=== PATIENT | female | born 1945 | race Caucasian/White ===

== ENCOUNTER 2017-08-20 20:16 | Emergency (ER) | payer MEDICARE, OTHER ==
[2017-08-20 20:40] VITALS: BP 157/77
[2017-08-20] MEDS ORDERED: Sodium Chloride 0.9% 10 ML Syringe FLUSH PRN (20:50)
[2017-08-20] MEDS ORDERED: Aspirin 81 MG Tab.Chew PO ONE (21:44)
[2017-08-20] MEDS ORDERED: Nitroglycerin 2% Oint 1 GM UD Packet TOP ONE (21:44)
[2017-08-20] MEDS ORDERED: Potassium Chloride 10 MEQ in Premix Bag 1 BAG IV ONE (22:13)
[2017-08-20] MEDS ORDERED: Sodium Chloride 0.9% 1,000 ML IV SCH (22:15)
--- NOTE | 2017-08-20 22:20 | EDM.PDOC ---
ED HPI GENERAL MEDICAL PROBLEM - General Chief Complaint: Upper Extremity Injury/Pain Stated Complaint: PAIN IN SHOULDER AND BLOOD PRESSURE IS UP Time Seen by Provider: 08/20/17 20:38 Source of Information: Reports: Patient, RN Notes Reviewed - History of Present Illness INITIAL COMMENTS - FREE TEXT/NARRATIVE: 72-year-old lady comes in with left back discomfort. She also has had some palpitations and mild shortness of breath. She had an episode of this a couple of days ago and then felt this again today. she did do some light duty lifting this afternoon prior to onset of discomfort. Her was bringing wheelbarrels of wood to the deck of their house and then she was stacking it on the deck for their woodstove. She does not feel she injured her back. She has had no chest pain or tightness. No nausea, vomiting or diaphoresis. No abd pain. She does have hx of Htn and their also is family hx of CAD. Treatments TICK SEWER: Reports: Other (see below) Other Treatments TICK SEWER: had daily asa today this morning Left Shoulder Pain Score (Numeric/FACES): 5 - Related Data Allergies Allergy/AdvReac Type Severity Reaction Status Date / Time amoxicillin Allergy Hives Verified 07/11/16 02:48 metronidazole Allergy Hives Verified 07/11/16 02:48 Home Meds: Home Meds Aspirin [Ecotrin] 81 mg PO DAILY 07/11/16 [History] Calcium Carbonate [Calcium] 600 mg PO DAILY 07/11/16 [History] Diltiazem HCl [Diltiazem 24Hr Cd] 300 mg PO DAILY 07/11/16 [History] Metoprolol Tartrate 12.5 mg PO BID 07/11/16 [History] Potassium 99 mg PO DAILY 07/11/16 [History] Ubidecarenone [Coq10] 124 mg PO DAILY 07/11/16 [History] atorvaSTATin [Lipitor] 10 mg PO BEDTIME 07/11/16 [History] Hydrochlorathiazide 12.5 mg PO DAILY 08/20/17 [History] Past Medical History HEENT History: Reports: Impaired Vision Other HEENT History: Wears glasses Cardiovascular History: Reports: Arrhythmia, High Cholesterol, Hypertension, Other (See Below) Other Cardiovascular History: SVT 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 Denies: Chest Pain GI/Abdominal: Denies: Abdominal Pain, Nausea, Vomiting Musculoskeletal: Reports: Back Pain. Denies: Shoulder Pain, Arm Pain Skin: Reports: No Symptoms Neurological: Reports: No Symptoms ED EXAM, GENERAL - Physical Exam Exam: See Below General Appearance: Alert, No Apparent Distress Throat/Mouth: Normal Inspection, Normal Oropharynx Head: No: Facial Swelling Neck: Normal Inspection, Supple, Other Respiratory/Chest: No Respiratory Distress, Lungs Clear, Normal Breath Sounds, Chest Non-Tender. No: Rales, Wheezing Cardiovascular: Regular Rate, Rhythm GI/Abdominal: Soft, Non-Tender. No: Guarding Back Exam: Normal Inspection. No: Paraspinal Tenderness, Vertebral Tenderness Extremities: Normal Inspection. No: Pedal Edema, Leg Pain, Increased Warmth, Redness Neurological: Alert, Oriented, No Motor/Sensory Deficits Skin Exam: Warm, Dry, Normal Color EKG INTERPRETATION EKG Date: 08/20/17 Rhythm: NSR [place]: Normal P-Wave: Present QRS: Other (There are Q waves V2 and V3) ST-T: Other (T-wave inversion aVL) Course - Vital Signs Last Recorded V/S: Last Vital Signs Temp 98.6 F 08/20/17 20:39 Pulse 57 L 08/20/17 20:39 Resp 20 08/20/17 20:39 BP 157/77 H 08/20/17 20:39 Pulse Ox 98 08/20/17 20:39 - Orders/Labs/Meds Orders: Active Orders 24 hr Category Date Time Status EKG 12 Lead [EKG Documentation Completion] [RC] STAT Care 08/20/17 20:50 Active Peripheral IV Care [RC] . DIRECTED Care 08/20/17 20:50 Active Chest 1V Frontal [CR] Stat Exams 08/20/17 20:50 Taken Sodium Chloride 0.9% [Normal Saline] 1,000 ml Med 08/20/17 22:15 Active IV ASDIRECTED Sodium Chloride 0.9% [Saline Flush] Med 08/20/17 20:50 Active 10 ml FLUSH ASDIRECTED PRN Peripheral IV Insertion Adult [OM.PC] Stat Oth 08/20/17 20:50 Ordered Medication Orders Sodium Chloride (Normal Saline) 1,000 mls @ 150 mls/hr IV ASDIRECTED ALECIA Last Admin: 08/20/17 22:25 Dose: 150 mls/hr Sodium Chloride (Saline Flush) 10 ml FLUSH ASDIRECTED PRN PRN Reason: Keep Vein Open Last Admin: 08/20/17 21:59 Dose: 10 ml Labs: Laboratory Tests 08/20/17 08/20/17 08/21/17 Range/Units 21:05 21:05 00:00 WBC 7.70 (3.98-10.04) K/mm3 RBC 4.68 (3.98-5.22) M/mm3 Hgb 13.9 (11.2-15.7) gm/L Hct 41.0 (34.1-44.9) % MCV 87.6 (79.4-94.8) fl MCH 29.7 (25.6-32.2) pg MCHC 33.9 (32.2-35.5) g/dl RDW Std Deviation 40.8 (36.4-46.3) fL Plt Count 232 (182-369) K/mm3 MPV 10.6 (9.4-12.3) fl Neut % (Auto) 65.7 (34.0-71.1) % Lymph % (Auto) 22.1 (19.3-51.7) % [place] % (Auto) 10.4 (4.7-12.5) % Eos % (Auto) 1.3 (0.7-5.8) Baso % (Auto) 0.4 (0.1-1.2) % Neut # (Auto) 5.06 (1.56-6.13) K/mm3 Lymph # (Auto) 1.70 (1.18-3.74) K/mm3 [place] # (Auto) 0.80 H (0.24-0.36) K/mm3 Eos # (Auto) 0.10 (0.04-0.36) K/mm3 Baso # (Auto) 0.03 (0.01-0.08) K/mm3 Sodium 142 (136-145) mEq/L Potassium 2.9 L (3.5-5.1) mEq/L Chloride 103 (98-107) mEq/L Carbon Dioxide 29 (21-32) mEq/L Anion Gap 12.9 (5-15) BUN 22 H (7-18) mg/dL Creatinine 1.0 (0.55-1.02) mg/dL Est Cr Clr Drug Dosing 39.04 mL/min Estimated GFR (MDRD) 54 (>60) mL/min BUN/Creatinine Ratio 22.0 H (14-18) Glucose 99 (83-115) mg/dL Calcium 9.7 (8.5-10.1) mg/dL Total Bilirubin 0.4 (0.2-1.0) mg/dL AST 19 (15-37) U/L ALT 23 (14-59) U/L Alkaline Phosphatase 54 (46-116) U/L Troponin I < 0.017 < 0.017 (0.00-0.056) ng/mL Total Protein 7.4 (6.4-8.2) g/dl Albumin 4.0 (3.4-5.0) g/dl Globulin 3.4 gm/dL Albumin/Globulin Ratio 1.2 (1-2) Meds: Medications Generic Name Dose Route Start Last Admin Trade Name John PRN Reason Stop Dose Admin Sodium Chloride 1,000 mls @ 150 mls/hr 08/20/17 22:15 08/20/17 22:25 Normal Saline IV 150 mls/hr ASDIRECTED ALECIA Administration Sodium Chloride 10 ml 08/20/17 20:50 08/20/17 21:59 Saline Flush FLUSH 10 ml ASDIRECTED PRN Administration Keep Vein Open Discontinued Medications Generic Name Dose Route Start Last Admin Trade Name Freq PRN Reason Stop Dose Admin Aspirin 324 mg 08/20/17 21:44 08/20/17 21:57 Aspirin PO 08/20/17 21:45 324 mg ONETIME ONE Administration Potassium Chloride 10 meq/ 100 mls @ 50 mls/hr 08/20/17 22:13 08/20/17 22:26 Premix IV 08/21/17 00:12 50 mls/hr ASDIRECTED ONE Administration Nitroglycerin 1 gm 08/20/17 21:44 08/20/17 21:58 Nitro-Bid 2% TOP 08/20/17 21:45 1 gm ONETIME ONE Administration - Re-Assessments/Exams Free Text/Narrative Re-Assessment/Exam: 08/20/17 22:23. Chest x-ray looks good, palate and has come back negative potassium is low at 2.9, other labs look good. We will give her IV potassium and then check a 3 hour troponin. Have given 324 mg aspirin and also nitro paste. 08/21/17 00:42. Repeat troponin has come back negative. She continues in sinus rhythm, no ectopy. She feels well at this time, her previous discomfort is gone. Discharge instructions as documented. Departure - Departure Time of Disposition: 00:42 Disposition: Home, Self-Care 01 Condition: Fair Clinical Impression: Atypical chest pain, Hypokalemia - Discharge Information Referrals: Darren James MD [Primary Care Provider] - Forms: ED Department Discharge Additional Instructions: Increase potassium to twice daily for the next week, try eat plenty of bananas, other fruit and vegetables, potatoes also are a good source of potassium., See Dr. Valle in about one week for recheck, return to ED if symptoms worsening in any way. - My Orders Last 24 Hours: My Active Orders 08/20/17 20:50 EKG 12 Lead [EKG Documentation Completion] [RC] STAT Peripheral IV Care [RC] . DIRECTED Chest 1V Frontal [CR] Stat Sodium Chloride 0.9% [Saline Flush] 10 ml FLUSH ASDIRECTED PRN Peripheral IV Insertion Adult [OM.PC] Stat 08/20/17 22:15 Sodium Chloride 0.9% [Normal Saline] 1,000 ml IV ASDIRECTED - Assessment/Plan Last 24 Hours: My Active Orders 08/20/17 20:50 EKG 12 Lead [EKG Documentation Completion] [RC] STAT Peripheral IV Care [RC] . DIRECTED Chest 1V Frontal [CR] Stat Sodium Chloride 0.9% [Saline Flush] 10 ml FLUSH ASDIRECTED PRN Peripheral IV Insertion Adult [OM.PC] Stat 08/20/17 22:15 Sodium Chloride 0.9% [Normal Saline] 1,000 ml IV ASDIRECTED
--- NOTE | 2017-08-21 11:24 | CR ---
Chest: Portable view of the chest was obtained. Comparison: Prior chest x-ray of 09/20/13. Heart size and mediastinum are normal. Slight atelectasis is noted within the left lung base. Lungs otherwise are clear. Mild scoliosis is noted within the spine. Surgical clips are seen from prior cholecystectomy. Impression: 1. Incidental findings. Nothing acute is appreciated on portable chest x-ray. Diagnostic code #2
== END 2017-08-21 00:51 | disposition home or self-care (01) ==
LOC: JD.ED 20:16
DX: R07.89 Other chest pain (principal); E87.6 Hypokalemia; I10 Essential (primary) hypertension; E78.00 Pure hypercholesterolemia, unspecified; Z79.899 Other long term (current) drug therapy; Z88.1 Allergy status to other antibiotic agents; Z79.82 Long term (current) use of aspirin
CPT/HCPCS: 36415; 71010; 80053; 84484; 85025; 93005; 96365; 96366; 99284; A9270; J3480; J7040; J7050; 93010; 99283

== ENCOUNTER 2018-10-15 14:10 | Emergency (ER) | payer MEDICARE, OTHER ==
[2018-10-15 14:24] VITALS: BP 155/71
[2018-10-15] MEDS ORDERED: Sodium Chloride 0.9% 10 ML Syringe FLUSH PRN (14:26)
[2018-10-15] MEDS ORDERED: Diltiazem 50 MG/10 ML SDV IVPUSH ONE (14:27)
[2018-10-15] MEDS ORDERED: Sodium Chloride 0.9% 1,000 ML IV SCH (14:30)
[2018-10-15] MEDS ORDERED: Diltiazem 125 MG in Sodium Chloride 0.9% 100 ML IV SCH (14:30)
--- NOTE | 2018-10-15 15:39 | CR ---
Chest: Portable view of the chest was obtained. Comparison: Prior chest x-ray of 08/20/17. Slight scar is seen within the left base. Heart size at the upper limits of normal. Tortuous thoracic aorta is seen. No acute parenchymal change is seen. Mild scoliosis and scattered degenerative change are seen within the spine. Impression: 1. Incidental findings. Nothing acute is seen. Diagnostic code #2
--- NOTE | 2018-10-15 16:33 | EDM.PDOC ---
ED HPI GENERAL MEDICAL PROBLEM - General Chief Complaint: Chest Pain Stated Complaint: CHEST PAIN Time Seen by Provider: 10/15/18 14:21 Source of Information: Reports: Patient History Limitations: Reports: No Limitations - History of Present Illness INITIAL COMMENTS - FREE TEXT/NARRATIVE: The patient presents with palpitations. She has a questionable history of A- fib. She says she is seeing cardiology and they are trying to figure out if this is SVT or A-fib. She had a stress test and that was fine. She had a recent holter but no results from that yet. She said this started after lunch. She has some chest tightness with it. She has no shortness of breath. She has no fever, chills, cough, congestion and runny nose. She has no swelling in her legs or pain in her legs. Onset: Sudden Duration: Hour(s): Location: Reports: Chest (tightness) Quality: Reports: Other (Tightness) Severity: Mild Improves with: Reports: None Worsens with: Reports: None Associated Symptoms: Reports: Chest Pain. Denies: Cough, Fever/Chills, Headaches, Nausea/Vomiting, Shortness of Breath Chest Pain Score (Numeric/FACES): 2 - Related Data Allergies Allergy/AdvReac Type Severity Reaction Status Date / Time amoxicillin Allergy Hives Verified 10/15/18 14:55 metronidazole Allergy Hives Verified 10/15/18 14:55 Home Meds: Home Meds Aspirin [Ecotrin] 81 mg PO DAILY 07/11/16 [History] Metoprolol Tartrate 12.5 mg PO BID 07/11/16 [History] dilTIAZem HCl [Diltiazem 24Hr Cd] 240 mg PO DAILY 07/11/16 [History] Hydrochlorathiazide 12.5 mg PO DAILY 08/20/17 [History] Past Medical History HEENT History: Reports: Impaired Vision Other HEENT History: Wears glasses Cardiovascular History: Reports: Arrhythmia, High Cholesterol, Hypertension, Other (See Below) Other Cardiovascular History: SVT 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 (See Below) Other SENIOR CONSULTING MANAGER History: Ovarian cyst - Past Surgical History GI Surgical History: Reports: Appendectomy, Cholecystectomy Female Surgical History: Reports: Hysterectomy, Tubal Ligation Social & Family History - Family History Cardiac: Reports: [place] Neurological: Reports: CVA Oncologic: Reports: Prostate - Tobacco Use Smoking Status *Q: Never Smoker - Caffeine Use Caffeine Use: Reports: None - Recreational Drug Use Recreational Drug Use: No ED ROS GENERAL - Review of Systems Review Of Systems: See Below Constitutional: Reports: No Symptoms HEENT: Reports: No Symptoms Respiratory: Reports: No Symptoms Cardiovascular: Reports: Chest Pain, Palpitations Endocrine: Reports: No Symptoms GI/Abdominal: Reports: No Symptoms : Reports: No Symptoms Musculoskeletal: Reports: No Symptoms ED EXAM, GENERAL - Physical Exam Exam: See Below Exam Limited By: No Limitations General Appearance: Alert, No Apparent Distress Ears: Normal External Exam Nose: Normal Inspection Head: Atraumatic, Normocephalic Neck: Normal Inspection Respiratory/Chest: No Respiratory Distress, Lungs Clear, Normal Breath Sounds Cardiovascular: No Edema, No Murmur, Irregularly Irregular GI/Abdominal: Soft, Non-Tender, No Organomegaly, No Mass Back Exam: Normal Inspection Extremities: Normal Inspection Neurological: Alert, Oriented, No Motor/Sensory Deficits EKG INTERPRETATION EKG Date: 10/15/18 Time: 14:34 Rhythm: A-Fib Rate (Beats/Min): 101 [place]: Normal QRS: Normal ST-T: Normal QT: Normal Course - Vital Signs Last Recorded V/S: Last Vital Signs Temp 98.6 F 10/15/18 14:20 Pulse 96 10/15/18 14:20 Resp 11 L 10/15/18 14:20 BP 155/71 H 10/15/18 14:20 Pulse Ox 98 10/15/18 14:20 - Orders/Labs/Meds Orders: Active Orders 24 hr Category Date Time Status Cardiac Monitoring [RC] . DIRECTED Care 10/15/18 14:26 Active EKG Documentation Completion [RC] STAT Care 10/15/18 14:26 Active Peripheral IV Care [RC] . DIRECTED Care 10/15/18 14:27 Active TSH [CHEM] Stat Lab 10/15/18 16:42 Ordered Diltiazem 125 mg Med 10/15/18 14:30 Active Sodium Chloride 0.9% [Normal Saline] 100 ml IV TITRATE Sodium Chloride 0.9% [Normal Saline] 1,000 ml Med 10/15/18 14:30 Active IV ASDIRECTED Sodium Chloride 0.9% [Saline Flush] Med 10/15/18 14:26 Active 10 ml FLUSH ASDIRECTED PRN Peripheral IV Insertion Adult [OM.PC] Stat Oth 10/15/18 14:26 Ordered Medication Orders Diltiazem HCl 125 mg/ Sodium (Chloride) 125 mls @ 10 mls/hr IV TITRATE ALECIA; Protocol Last Admin: 10/15/18 15:52 Dose: 10 mg/hr, 10 mls/hr Sodium Chloride (Normal Saline) 1,000 mls @ 125 mls/hr IV ASDIRECTED ALECIA Last Admin: 10/15/18 15:30 Dose: 125 mls/hr Sodium Chloride (Saline Flush) 10 ml FLUSH ASDIRECTED PRN PRN Reason: Keep Vein Open Last Admin: 10/15/18 15:29 Dose: 10 ml Labs: Laboratory Tests 10/15/18 10/15/18 Range/Units 14:30 14:30 WBC 6.67 (3.98-10.04) K/mm3 RBC 4.99 (3.98-5.22) M/mm3 Hgb 14.7 (11.2-15.7) gm/L Hct 43.3 (34.1-44.9) % MCV 86.8 (79.4-94.8) fl MCH 29.5 (25.6-32.2) pg MCHC 33.9 (32.2-35.5) g/dl RDW Std Deviation 41.1 (36.4-46.3) fL Plt Count 226 (182-369) K/mm3 MPV 10.7 (9.4-12.3) fl Neut % (Auto) 51.1 (34.0-71.1) % Lymph % (Auto) 37.2 (19.3-51.7) % [place] % (Auto) 8.8 (4.7-12.5) % Eos % (Auto) 2.4 (0.7-5.8) Baso % (Auto) 0.4 (0.1-1.2) % Neut # (Auto) 3.40 (1.56-6.13) K/mm3 Lymph # (Auto) 2.48 (1.18-3.74) K/mm3 [place] # (Auto) 0.59 H (0.24-0.36) K/mm3 Eos # (Auto) 0.16 (0.04-0.36) K/mm3 Baso # (Auto) 0.03 (0.01-0.08) K/mm3 Sodium 141 (136-145) mEq/L Potassium 2.6 L (3.5-5.1) mEq/L Chloride 102 (98-107) mEq/L Carbon Dioxide 27 (21-32) mEq/L Anion Gap 14.6 (5-15) BUN 15 (7-18) mg/dL Creatinine 1.1 H (0.55-1.02) mg/dL Est Cr Clr Drug Dosing 41.37 mL/min Estimated GFR (MDRD) 48 (>60) mL/min BUN/Creatinine Ratio 13.6 L (14-18) Glucose 139 H (83-115) mg/dL Calcium 10.1 (8.5-10.1) mg/dL Magnesium 2.3 (1.8-2.4) mg/dl Total Bilirubin 0.5 (0.2-1.0) mg/dL AST 18 (15-37) U/L ALT 23 (14-59) U/L Alkaline Phosphatase 69 (46-116) U/L Troponin I < 0.017 (0.00-0.056) ng/mL Total Protein 8.0 (6.4-8.2) g/dl Albumin 4.3 (3.4-5.0) g/dl Globulin 3.7 gm/dL Albumin/Globulin Ratio 1.2 (1-2) Meds: Medications Generic Name Dose Route Start Last Admin Trade Name Freq PRN Reason Stop Dose Admin Diltiazem HCl 125 mg/ Sodium 125 mls @ 10 mls/hr 10/15/18 14:30 10/15/18 15: 52 Chloride IV 10 mg/hr TITRATE ALECIA 10 mls/hr Administration Protocol 10 MG/HR Sodium Chloride 1,000 mls @ 125 mls/hr 10/15/18 14:30 10/15/18 15:30 Normal Saline IV 125 mls/hr ASDIRECTED ALECIA Administration Sodium Chloride 10 ml 10/15/18 14:26 10/15/18 15:29 Saline Flush FLUSH 10 ml ASDIRECTED PRN Administration Keep Vein Open Discontinued Medications Generic Name Dose Route Start Last Admin Trade Name Freq PRN Reason Stop Dose Admin Diltiazem HCl 10 mg 10/15/18 14:27 10/15/18 15:29 Cardizem IVPUSH 10/15/18 14:28 10 mg ONETIME ONE Administration Potassium Chloride 20 meq 10/15/18 16:36 Klor-Con M20 PO 10/15/18 16:37 ONETIME ONE - Re-Assessments/Exams Free Text/Narrative Re-Assessment/Exam: 10/15/18 16:34 I ordered an IV NS at 125mL/hr, EKG, CXR, labs, cardizem bolus and drip. She did take aspirin on the way. 10/15/18 16:37 Her EKG shows A-fib. Her CXR shows nothing acute. Her CBC looks good. Her K was low at 2.6. I have ordered 20meq of potassium. Her creatinine was slightly elevated at 1.1. Her glucose was elevated at 136. Her troponin was negative. Her heart rate would come down at times but would go right back up to 130s and 140s. I feel she needs to be admitted. We do not have any ICU beds here. 10/15/18 16:43 I called her doctor Dr James and he says she has never been in A-fib before. Her recent stress test looked good. He just ordered a holter monitor and he has not gotten those results back yet. He says she was on metoprolol for BP and diltiazem for a different tachycardia. I have called [facility] in [place] and talked with the skein drier Dr Salinas and he accepted the patient. 10/15/18 16:49 I also talked with the hospitalist Dr Parmar. I will need to send her by ambulance. Departure - Departure Time of Disposition: 16:50 Disposition: DC/Tfer to [facility] 02 Reason for Transfer *Q: Other Condition: Fair Clinical Impression: Hypokalemia, Atrial fibrillation with RVR Chest pain Qualifiers: Chest pain type: unspecified Qualified Code(s): R07.9 - Chest pain, unspecified Referrals: Darren James MD [Primary Care Provider] - Forms: ED Department Discharge - My Orders Last 24 Hours: My Active Orders 10/15/18 14:26 Cardiac Monitoring [RC] . DIRECTED EKG Documentation Completion [RC] STAT Sodium Chloride 0.9% [Saline Flush] 10 ml FLUSH ASDIRECTED PRN Peripheral IV Insertion Adult [OM.PC] Stat 10/15/18 14:27 Peripheral IV Care [RC] . DIRECTED 10/15/18 14:30 Diltiazem 125 mg Sodium Chloride 0.9% [Normal Saline] 100 ml IV TITRATE Sodium Chloride 0.9% [Normal Saline] 1,000 ml IV ASDIRECTED 10/15/18 16:42 TSH [CHEM] Stat - Assessment/Plan Last 24 Hours: My Active Orders 10/15/18 14:26 Cardiac Monitoring [RC] . DIRECTED EKG Documentation Completion [RC] STAT Sodium Chloride 0.9% [Saline Flush] 10 ml FLUSH ASDIRECTED PRN Peripheral IV Insertion Adult [OM.PC] Stat 10/15/18 14:27 Peripheral IV Care [RC] . DIRECTED 10/15/18 14:30 Diltiazem 125 mg Sodium Chloride 0.9% [Normal Saline] 100 ml IV TITRATE Sodium Chloride 0.9% [Normal Saline] 1,000 ml IV ASDIRECTED 10/15/18 16:42 TSH [CHEM] Stat
[2018-10-15] MEDS ORDERED: Potassium Chloride 20 MEQ Tab.ER PO ONE (16:36)
== END 2018-10-15 18:15 ==
LOC: JD.ED 14:10
DX: I48.91 Unspecified atrial fibrillation (principal); E87.6 Hypokalemia; E78.00 Pure hypercholesterolemia, unspecified; I10 Essential (primary) hypertension; Z88.1 Allergy status to other antibiotic agents; Z88.8 Allergy status to other drugs, medicaments and biological substances; Z79.899 Other long term (current) drug therapy
CPT/HCPCS: 36415; 71045; 80053; 83735; 84443; 84484; 85025; 93005; 96365; 96366; 96376; 99285; A9270; J3490; J7030; J7040; 93010

== ENCOUNTER 2020-04-18 08:34 | Emergency (ER) | payer MEDICARE, OTHER ==
--- NOTE | 2020-04-18 08:53 | EDM.PDOC ---
ED HPI GENERAL MEDICAL PROBLEM - General Chief Complaint: Trauma Stated Complaint: FALL, RIB AND BOTH ANKLES INJURED Time Seen by Provider: 04/18/20 08:38 Source of Information: Reports: Patient History Limitations: Reports: No Limitations - History of Present Illness INITIAL COMMENTS - FREE TEXT/NARRATIVE: 74-year-old female presents to the ED for evaluation of injuries to both lower extremities primarily her feet and ankles after she fell through a rotten wooden deck floor. She estimates she fell about 7 feet through the deck and landed feet first. Both ankles are hurting in both feet are hurting. Some mild pain in her right lower ribs. Denies any back pain. Denies hitting her head or losing consciousness. Injury occurred about an hour prior to arrival in the ED. She is finding it very painful to put any weight on either foot. She has no artificial joints. No pain with deep inspiration. Onset: Today, Sudden Onset Date: 04/18/20 Onset Time: 07:50 Duration: Minutes: Location: Reports: Chest (Right lower ribs), Lower Extremity, Left, Lower Extremity, Right (Left foot and ankle right foot and ankle) Quality: Reports: Ache, Throbbing Severity: Moderate Improves with: Reports: Rest Worsens with: Reports: Other Context: Reports: Trauma (Through a rotten a deck. Apparently the boards gave out and she fell approximately 7 feet to the ground.). Denies: Activity (Worse with movement and weightbearing.), Exercise, Lifting, Sick Contact Associated Symptoms: Reports: Chest Pain. 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.) Bilateral Ankle Pain Score (Numeric/FACES): 3 - Related Data Allergies Allergy/AdvReac Type Severity Reaction Status Date / Time amoxicillin Allergy Hives Verified 04/18/20 08:51 metronidazole Allergy Hives Verified 04/18/20 08:51 Home Meds: Home Meds Apixaban [Eliquis] 5 mg PO BID 04/18/20 [History] Calcium Carbonate [Calcium Antacid] 300 mg PO TID 04/18/20 [History] Glucosamine [Glucosamine Sulfate] 1,000 mg PO DAILY 04/18/20 [History] Pantoprazole [ProTONIX] 40 mg PO DAILY 04/18/20 [History] Potassium Chloride 20 meq PO DAILY 04/18/20 [History] Pravastatin [Pravachol] 40 mg PO DAILY 04/18/20 [History] Spironolactone [Aldactone] 12.5 mg PO DAILY 04/18/20 [History] Ubidecarenone/Vitamin E [Co Q-10 50 MG Softgel] 124 mg PO DAILY 04/18/20 [History] amLODIPine [Norvasc] 2.5 mg PO DAILY 04/18/20 [History] carvediloL [Carvedilol] 6.25 mg PO BID 04/18/20 [History] oxyCODONE HCl/Acetaminophen [Percocet 5-325 mg Tablet] 1 - 2 each PO Q4H PRN #24 tablet 04/18/20 [Rx] Past Medical History HEENT History: Reports: Impaired Vision Other HEENT History: Wears glasses Cardiovascular History: Reports: Arrhythmia (She has chronically anticoagulated with apixaban), High Cholesterol, Hypertension, Other (See Below) Other Cardiovascular History: SVT 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 COORDINATOR History: Reports: Other (See Below) Other PLACEMENT COORDINATOR History: Ovarian cyst - Past Surgical History GI Surgical History: Reports: Appendectomy, Cholecystectomy Female Surgical History: Reports: Hysterectomy, Tubal Ligation Social & Family History - Family History Cardiac: Reports: NM Neurological: Reports: CVA Oncologic: Reports: Prostate - Caffeine Use Caffeine Use: Reports: None - Living Situation & Occupation Living situation: Reports: Occupation: Retired Review of Systems - Review of Systems Review Of Systems: See Below Constitutional: Denies: Chills, Diaphoresis, Weakness Eyes: Reports: Glasses Ears: Reports: No Symptoms Nose: Reports: No Symptoms Mouth/Throat: Reports: No Symptoms Respiratory: Reports: No Symptoms. Denies: Shortness of Breath, Wheezing Cardiovascular: Reports: Edema, Irregular Heart Rate, Palpitations. Denies: Chest Pain, Lightheadedness, Syncope (Patient only.) GI/Abdominal: Reports: Other (History of GERD.) Genitourinary: Reports: Other (Urinary frequency with urge component) Musculoskeletal: Reports: Joint Pain (Both knees have been replaced.) Skin: Reports: Bruising (Bruises easily since she is on Eliquis.) Neurological: Reports: No Symptoms Psychiatric: Reports: No Symptoms ED EXAM, GENERAL - Physical Exam Exam: See Below Exam Limited By: No Limitations General Appearance: Alert, WD/WN, No Apparent Distress, Other (Temperature is 36.7. Heart rate 68 in sinus respiratory is 18 BP 141/71 pulse ox 99% on room air) Eye Exam: Bilateral Eye: Normal Inspection, PERRL Throat/Mouth: Normal Inspection, Normal Lips, Normal Teeth, Normal Oropharynx, Other Head: Atraumatic (No injuries to the tongue or dentition.), Normocephalic, Other Neck: Normal Inspection (No outward signs of any head or facial trauma.), Supple, Non-Tender, Full Range of Motion. No: Carotid Bruit, Lymphadenopathy (L), Lymphadenopathy (R) Respiratory/Chest: No Respiratory Distress, Lungs Clear, Normal Breath Sounds, No Accessory Muscle Use, Chest Non-Tender, Other (No tenderness to palpation right lower ribs. No abrasions or contusions appreciated. No subcutaneous emphysema or crepitus appreciated.) Cardiovascular: Regular Rate, Rhythm, No Edema, No Gallop, No Murmur, No Rub Peripheral Pulses: 2+: Carotid (L), Carotid (R), Posterior Tibial (L), Posterior Tibial (R), Dorsalis Pedis (L), Dorsalis Pedis (R) GI/Abdominal: Normal Bowel Sounds, Soft, Non-Tender, No Organomegaly, No Mass, Pelvis Stable, Other (No signs of abdominal wall injuries. No abrasions or contusions.). No: Guarding, Rigid, Rebound, Tender Back Exam: Full Range of Motion, Other (Mildly increased lordotic curvature lumbar spine but no pain on palpation. Slight kyphosis thoracic spine but no pain from neck or thoracic back.). No: CVA Tenderness (L), CVA Tenderness (R) Extremities: Other (No injuries to the upper extremities appreciated. 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 Able to internally externally rotate both hips without any evidence of injury. There appears to be some swelling both lateral ankles. No pain on palpation of the proximal fibular head. Squeeze test mid ankle or tib-fib did not cause pain in the ank les. Both medial ankle ligaments are intact without pain on palpation. Pain on squeeze test of both moderate mid feet. No obvious deformities.) Neurological: Alert, Oriented, CN II-XII Intact, Normal Cognition Psychiatric: Normal Affect, Normal Mood Skin Exam: Warm, Dry, Intact, Normal Color, No Rash Course - Vital Signs Last Recorded V/S: Last Vital Signs Temp 36.7 C 04/18/20 08:35 Pulse 68 04/18/20 08:35 Resp 18 04/18/20 08:35 BP 141/71 H 04/18/20 08:35 Pulse Ox 99 04/18/20 08:35 - Radiology Interpretation Free Text/Narrative:: 74-year-old female presents to the ED after falling through a wooden deck. Apparently the planking was rotten and she fell approximately 7 feet to the ground. She landed hard on both of her feet injuring both ankles and both feet. No pain in her lumbar spine. Mild pain right costal margin and lower ribs without abrasions or contusions. Stable vital signs. Plan 2 view chest x-ray three-view x-ray of both ankles and feet. - Re-Assessments/Exams Free Text/Narrative Re-Assessment/Exam: 04/18/20 09:32 chest x-ray reveals normal lung horner and normal cardiac silhouette with slight calcification of the arch of the aorta. No rib fractures are identified. On lateral view there is a mild compression fracture of an upper mid thoracic vertebra which appears to be old. Degenerative arthritic change and osteopenia appreciated throughout the thoracic spine that is visualized. X-rays of the right ankle and foot reveals significant osteopenia /osteoporosis of the bones but no fractures were identified in the ankle. Is to be an old avulsion fracture off the medial malleolus. X-rays of the foot suggest a fracture through the calcaneus. CT will be obtained of this area. X- rays of the left ankle do not reveal any fractures. Again the bones are very osteopenic. There is some debris off the medial malleolus which is old. There is also some debris off of the anterior talus which is old. X-rays of the left foot reveals a undisplaced fracture through the neck of the fifth metatarsal. No other fractures in the foot were identified. This will require immobilization with a posterior slab splint. She will be nonweightbearing crutch walking. Departure - Departure Time of Disposition: 12:41 Disposition: Home, Self-Care 01 Condition: Fair Clinical Impression: Injury resulting from fall from height Closed right calcaneal fracture Qualifiers: Encounter type: initial encounter Calcaneus location: body Fracture alignment: nondisplaced Qualified Code(s): S92.014A - Nondisplaced fracture of body of right calcaneus, initial encounter for closed fracture Fracture of fifth metatarsal bone of left foot Qualifiers: Encounter type: initial encounter Fracture type: closed Fracture alignment: nondisplaced Qualified Code(s): S92.355A - Nondisplaced fracture of fifth metatarsal bone, left foot, initial encounter for closed fracture - Discharge Information *PRESCRIPTION DRUG MONITORING PROGRAM REVIEWED*: Not Applicable *COPY OF PRESCRIPTION DRUG MONITORING REPORT IN PATIENT [place]: Not Applicable Prescriptions: oxyCODONE HCl/Acetaminophen [Percocet 5-325 mg Tablet] 1 - 2 each PO Q4H PRN #24 tablet PRN Reason: pain relief. Instructions: Cast or Splint Care, Adult, [id number] Referrals: Manuela Mchugh MD [Primary Care Provider] - Forms: ED Department Discharge Additional Instructions: Evaluation in the emergency room today in regards to fall through rotten boards on the deck this morning. This resulted in a fall about 7 feet to the ground landing hard on both of your feet and injuring both feet and ankles. Also mild contusion to your right lower ribs. X-rays of the ankles do not reveal any fracture on the ankle bones but the bones are extremely osteopenic or osteoporot ic. X-ray of the right foot reveals a fracture through the heel bone or calcaneus bone with no displacement. This foot and leg was therefore placed in a short leg bulky splint to protect the calcaneus. You may walk on tippy toes on this foot. X-rays of the left foot reveal a undisplaced fracture through the neck of the fifth metatarsal bone about mid lateral foot or outside foot. It too was in good position. You were placed in a cast boot brace to protect this area until it heals. You will need a walker to get around to take the weight off of the feet. Elevate both legs as much as possible for the next 3 to 4 days. Pain medication is Percocet tab 5/325 1 or 2 tablets every 4 hours as needed for pain relief. I would advise only 1 every 4 hours for the next 2 or 3 days. Suggest MiraLAX powder 17 g or 1 scoop daily to prevent constipation from pain pills as this is a very common side effect. You are to follow-up with orthopedic surgeon Dr. Basilio on May 03 which is a Saturday at 11:45 in the morning. Please arrive 15 minutes ahead of that for paperwork. Sepsis Event Note (ED) - Focused Exam Vital Signs: Vital Signs Temp Pulse Resp BP Pulse Ox 04/18/20 08:35 36.7 C 68 18 141/71 H 99
--- NOTE | 2020-04-18 09:50 | CR ---
Chest: 2 views of the chest were obtained. Comparison: Previous chest x-ray of 10/15/18. Heart size and mediastinum are normal. Minimal linear scar is seen within the left base. Lungs otherwise are clear. Degenerative change is scattered within the spine with mild scoliosis. Surgical clips are noted from prior cholecystectomy. No acute abnormality is appreciated. Impression: 1. Findings as noted above. 2. Nothing acute is appreciated on 2 view chest x-ray. Diagnostic code #2 This report was dictated in MDT
--- NOTE | 2020-04-18 10:47 | CT ---
CT right foot Technique: Multiple axial sections through the right foot were obtained. Reconstructed coronal and sagittal images were obtained. Findings: Fracture is noted within the body of the calcaneus. Fracture is comminuted but shows no significant displacement. Well-corticated bony density is noted off the medial ankle which is old. Small calcification is noted between the distal tibia and fibula which is old. No other acute fracture is appreciated. Degenerative change is noted within the midfoot. Previous surgery is noted within the proximal phalanx of the first toe. Impression: 1. Comminuted fracture without significant displacement involving the calcaneus. 2. Degenerative change within the midfoot and evidence of prior surgery within the proximal phalanx of the first toe. Diagnostic code #3 This report was dictated in MDT
--- NOTE | 2020-04-18 11:14 | CR ---
Right ankle: 4 views of the right ankle were obtained. Comparison: No prior right ankle exam, study correlated with right foot CT study performed earlier on the same day (9:53 AM). Calcaneal fracture is noted. Plantar spur is noted. Small spur is noted at the attachment of the Achilles tendon to the calcaneus. Ankle mortise is symmetric. No additional fracture or other bony abnormality is appreciated. Impression: 1. Calcaneal fracture is noted as described on CT ankle study. 2. Calcaneal spurs without other acute finding being seen. Diagnostic code #3 This report was dictated in MDT
--- NOTE | 2020-04-18 11:14 | CR ---
Left ankle: 4 views left ankle were obtained. Phillips: No prior left ankle study is available. Plantar spur is noted. Ankle mortise is symmetric. Small avulsion injury is noted off the distal tip of the fibula which appears acute. Soft tissue swelling is noted. Bony density is noted off the anterior and dorsal talus which is most likely old. Impression: 1. Minimal cortical avulsion fracture off the distal tip of the fibula which appears acute. 2. Other findings believed to be old. 3. Mild soft tissue swelling. Diagnostic code #3 This report was dictated in MDT
--- NOTE | 2020-04-18 11:14 | CR ---
Left foot: 4 views left foot were obtained. Comparison: No prior left foot exam is available. Fracture is identified within the base of the fifth metatarsal. Plantar spur is seen. Joint space narrowing is noted within the first MTP joint. No acute fracture or other bony abnormality is appreciated. Bony density off the anterior and dorsal talus which is likely old. Impression: 1. Fifth metatarsal fracture which shows no significant displacement. 2. Other findings as noted above which are nonacute. Diagnostic code #3 This report was dictated in MDT
--- NOTE | 2020-04-18 11:14 | CR ---
Right foot: 4 views of the right foot were obtained. Comparison: No previous right foot study. Plantar spur is noted. Staple is noted within the proximal phalanx of the right first toe. Osteopenia is present. Calcaneal fracture is again noted. Calcaneal spurs are again noted. Impression: 1. Calcaneal fracture. 2. Other findings as noted above. No other acute abnormality is appreciated. Diagnostic code #3 This report was dictated in MDT
[2020-04-18 16:06] VITALS: BP 130/72; PULSE 84
== END 2020-04-18 13:20 | disposition home or self-care (01) ==
LOC: JD.ED 08:34
DX: S92.014A Nondisplaced fracture of body of right calcaneus, initial encounter for closed fracture (principal); S82.832A Other fracture of upper and lower end of left fibula, initial encounter for closed fracture; S92.355A Nondisplaced fracture of fifth metatarsal bone, left foot, initial encounter for closed fracture; R07.81 Pleurodynia; R07.9 Chest pain, unspecified; Z88.1 Allergy status to other antibiotic agents; Z79.899 Other long term (current) drug therapy; Z90.49 Acquired absence of other specified parts of digestive tract; Z98.51 Tubal ligation status; Z90.710 Acquired absence of both cervix and uterus; W17.89XA Other fall from one level to another, initial encounter
CPT/HCPCS: 29515; 71046; 71046-26; 73610-26-LT; 73610-26-RT; 73610-LT; 73610-RT; 73630-26-LT; 73630-26-RT; 73630-LT; 73630-RT; 73700-26-RT; 73700-RT; 99284-25

== ENCOUNTER 2020-08-18 18:18 | Emergency (ER) | payer MEDICARE, OTHER ==
[2020-08-18 18:30] VITALS: BP 145/71; PULSE 64
--- NOTE | 2020-08-18 19:23 | EDM.PDOC ---
ED HPI GENERAL MEDICAL PROBLEM - General Chief Complaint: Chest Pain Stated Complaint: DIZZY AND CHEST PRESSURE Time Seen by Provider: 08/18/20 18:22 Source of Information: Reports: Patient History Limitations: Reports: No Limitations - History of Present Illness INITIAL COMMENTS - FREE TEXT/NARRATIVE: Patient is a 75-year-old female presenting to the emergency department with complaints of chest heaviness that started last evening. She had some intermittent shortness of breath associated with this. She states that it was not necessarily painful but that it felt heavy. At this time, the symptoms have resolved. She had a stress test done yesterday and states that her primary care provider told her that "the bottom part of her heart was not pumping" and she has been somewhat worried about this. chest Pain Score (Numeric/FACES): 6 - Related Data Allergies Allergy/AdvReac Type Severity Reaction Status Date / Time amoxicillin Allergy Hives Verified 08/18/20 18:30 metronidazole Allergy Hives Verified 08/18/20 18:30 Home Meds: Home Meds Apixaban [Eliquis] 5 mg PO BID 04/18/20 [History] Calcium Carbonate [Calcium Antacid] 300 mg PO TID 04/18/20 [History] Glucosamine [Glucosamine Sulfate] 1,000 mg PO DAILY 04/18/20 [History] Pantoprazole [ProTONIX] 40 mg PO DAILY 04/18/20 [History] Pravastatin [Pravachol] 20 mg PO DAILY 04/18/20 [History] Spironolactone [Aldactone] 12.5 mg PO DAILY 04/18/20 [History] Ubidecarenone/Vitamin E [Co Q-10 50 MG Softgel] 124 mg PO DAILY 04/18/20 [History] carvediloL [Carvedilol] 3.125 mg PO BID 04/18/20 [History] Cholecalciferol (Vitamin D3) [Vitamin D3] 5,000 unit PO DAILY 08/18/20 [History] Zinc 50 mg PO DAILY 08/18/20 [History] Past Medical History HEENT History: Reports: Impaired Vision Other HEENT History: Wears glasses Cardiovascular History: Reports: Arrhythmia, High Cholesterol, Hypertension, Other (See Below) Other Cardiovascular History: SVT PRESSURE DISPATCHER History: Reports: Other (See Below) Other PRESSURE DISPATCHER History: Ovarian cyst Other Hematologic History: pseudocholinesterace deficency - Infectious Disease History Infectious Disease History: Reports: Chicken Pox, Measles - Past Surgical History GI Surgical History: Reports: Appendectomy, Cholecystectomy Female Surgical History: Reports: Hysterectomy, Tubal Ligation Social & Family History - Family History Cardiac: Reports: [place] Neurological: Reports: CVA Oncologic: Reports: Prostate - Tobacco Use Tobacco Use Status *Q: Never Tobacco User - Caffeine Use Caffeine Use: Reports: None - Recreational Drug Use Recreational Drug Use: No - Living Situation & Occupation Living situation: Reports: Occupation: Retired ED ROS GENERAL - Review of Systems Review Of Systems: See Below Constitutional: Reports: No Symptoms. Denies: Fever, Chills, Weakness HEENT: Reports: No Symptoms Respiratory: Reports: Shortness of Breath (Occasional) Cardiovascular: Reports: Lightheadedness (When bending over and then standing up), Other (Chest heaviness). Denies: Palpitations, Syncope Endocrine: Reports: No Symptoms GI/Abdominal: Reports: No Symptoms : Reports: No Symptoms Musculoskeletal: Reports: No Symptoms Skin: Reports: No Symptoms Neurological: Reports: No Symptoms Psychiatric: Reports: No Symptoms Hematologic/Lymphatic: Reports: No Symptoms Immunologic: Reports: No Symptoms ED EXAM, GENERAL - Physical Exam Exam: See Below General Appearance: Alert, WD/WN, No Apparent Distress Respiratory/Chest: No Respiratory Distress, Lungs Clear, Normal Breath Sounds, No Accessory Muscle Use, Chest Non-Tender Cardiovascular: Normal Peripheral Pulses, Regular Rate, Rhythm, No Edema, No Gallop, No JVD, No Murmur, No Rub GI/Abdominal: Normal Bowel Sounds, Soft, Non-Tender, No Organomegaly, No Distention, No Abnormal Bruit, No Mass Neurological: Alert, Oriented, CN II-XII Intact, Normal Cognition, Normal Gait, Normal Reflexes, No Motor/Sensory Deficits Psychiatric: Normal Affect, Normal Mood Skin Exam: Warm, Dry, Intact, Normal Color, No Rash #1 Interpretation EKG Date: 08/18/20 Time: 18:25 Rhythm: NSR Rate (Beats/Min): 61 [place]: Normal P-Wave: Present QRS: Normal ST-T: Normal QT: Normal Comparison: No Change Course - Vital Signs Last Recorded V/S: Last Vital Signs Temp 98.1 F 08/18/20 18:22 Pulse 64 08/18/20 18:22 Resp 14 08/18/20 18:22 BP 145/71 H 08/18/20 18:22 Pulse Ox 98 08/18/20 18:22 - Orders/Labs/Meds Labs: Laboratory Tests 08/18/20 08/18/20 08/18/20 Range/Units 18:30 18:30 18:30 WBC 6.53 (3.98-10.04) K/mm3 RBC 4.50 (3.98-5.22) M/mm3 Hgb 13.4 (11.2-15.7) gm/dl Hct 41.1 (34.1-44.9) % MCV 91.3 D (79.4-94.8) fl MCH 29.8 (25.6-32.2) pg MCHC 32.6 (32.2-35.5) g/dl RDW Std Deviation 42.8 (36.4-46.3) fL Plt Count 239 (182-369) K/mm3 MPV 10.2 (9.4-12.3) fl Neut % (Auto) 54.2 (34.0-71.1) % Lymph % (Auto) 31.9 (19.3-51.7) % [place] % (Auto) 10.3 (4.7-12.5) % Eos % (Auto) 2.9 (0.7-5.8) Baso % (Auto) 0.5 (0.1-1.2) % Neut # (Auto) 3.55 (1.56-6.13) K/mm3 Lymph # (Auto) 2.08 (1.18-3.74) K/mm3 [place] # (Auto) 0.67 H (0.24-0.36) K/mm3 Eos # (Auto) 0.19 (0.04-0.36) K/mm3 Baso # (Auto) 0.03 (0.01-0.08) K/mm3 PT 10.9 (9.7-12.0) SECONDS INR 1.02 D-Dimer, Quantitative < 0.19 L (0.19-0.50) mg/L Sodium 139 (136-145) mEq/L Potassium 3.7 (3.5-5.1) mEq/L Chloride 105 (98-107) mEq/L Carbon Dioxide 25 (21-32) mEq/L Anion Gap 12.7 (5-15) BUN 19 H (7-18) mg/dL Creatinine 1.1 H (0.55-1.02) mg/dL Est Cr Clr Drug Dosing 33.87 mL/min Estimated GFR (MDRD) 48 (>60) mL/min BUN/Creatinine Ratio 17.3 (14-18) Glucose 122 H (83-115) mg/dL Calcium 9.5 (8.5-10.1) mg/dL Magnesium 2.1 (1.8-2.4) mg/dl Total Bilirubin 0.5 (0.2-1.0) mg/dL AST 19 (15-37) U/L ALT 30 (14-59) U/L Alkaline Phosphatase 80 (46-116) U/L Troponin I < 0.017 (0.00-0.056) ng/mL NT-Pro-B Natriuret Pep (0-450) pg/mL Total Protein 7.3 (6.4-8.2) g/dl Albumin 4.0 (3.4-5.0) g/dl Globulin 3.3 gm/dL Albumin/Globulin Ratio 1.2 (1-2) 08/18/20 Range/Units 18:30 WBC (3.98-10.04) K/mm3 RBC (3.98-5.22) M/mm3 Hgb (11.2-15.7) gm/dl Hct (34.1-44.9) % MCV (79.4-94.8) fl MCH (25.6-32.2) pg MCHC (32.2-35.5) g/dl RDW Std Deviation (36.4-46.3) fL Plt Count (182-369) K/mm3 MPV (9.4-12.3) fl Neut % (Auto) (34.0-71.1) % Lymph % (Auto) (19.3-51.7) % [place] % (Auto) (4.7-12.5) % Eos % (Auto) (0.7-5.8) Baso % (Auto) (0.1-1.2) % Neut # (Auto) (1.56-6.13) K/mm3 Lymph # (Auto) (1.18-3.74) K/mm3 [place] # (Auto) (0.24-0.36) K/mm3 Eos # (Auto) (0.04-0.36) K/mm3 Baso # (Auto) (0.01-0.08) K/mm3 PT (9.7-12.0) SECONDS INR D-Dimer, Quantitative (0.19-0.50) mg/L Sodium (136-145) mEq/L Potassium (3.5-5.1) mEq/L Chloride (98-107) mEq/L Carbon Dioxide (21-32) mEq/L Anion Gap (5-15) BUN (7-18) mg/dL Creatinine (0.55-1.02) mg/dL Est Cr Clr Drug Dosing mL/min Estimated GFR (MDRD) (>60) mL/min BUN/Creatinine Ratio (14-18) Glucose (83-115) mg/dL Calcium (8.5-10.1) mg/dL Magnesium (1.8-2.4) mg/dl Total Bilirubin (0.2-1.0) mg/dL AST (15-37) U/L ALT (14-59) U/L Alkaline Phosphatase (46-116) U/L Troponin I (0.00-0.056) ng/mL NT-Pro-B Natriuret Pep 90 (0-450) pg/mL Total Protein (6.4-8.2) g/dl Albumin (3.4-5.0) g/dl Globulin gm/dL Albumin/Globulin Ratio (1-2) - Re-Assessments/Exams Free Text/Narrative Re-Assessment/Exam: Patient is a 75-year-old female presenting to the emergency department with complaints of chest heaviness and intermittent shortness of breath that began last evening. Symptoms had resolved by the time of my exam. She denies any distinct chest pain but states that her chest felt heavy. She did have some occasional "dizzy spells "mostly when she would bend over and then stand upright. She had a stress test completed yesterday which is ordered by her group home manager, Dr. Prince. There were no abnormalities appreciated on the Cardiolite portion of the stress test. There is no reversible changes on the Lexiscan. If her chest heaviness was due to cardiac ischemia, we would expect to see her troponin be elevated since symptoms were present since last evening. I have ordered CBC, CMP, CRP, D-dimer, troponin, coags, EKG, chest x-ray. 08/18/20 19:19 Hematology was grossly unremarkable. Troponin and D-dimer were negative. Electrolytes were all normal. Liver function is normal. EKG showed no acute ischemia. There was no acute abnormalities visualized on the chest x-ray. Discussed results with patient. Recommend she continue her current regimen of medications and follow-up with her group home manager Saturday. Discussed return precautions. Discharge instructions as documented. Departure - Departure Time of Disposition: 19:23 Disposition: Home, Self-Care 01 Condition: Good Clinical Impression: Atypical chest pain Instructions: Nonspecific Chest Pain, Adult Referrals: aMnuela Mchugh MD [Primary Care Provider] - David Shah DO [Ordering Only Provider] - Forms: ED Department Discharge Additional Instructions: You were seen in the emergency department this evening for chest heaviness since last evening. Work-up included blood work, EKG, and a chest x-ray. Results of your work-up was found to be normal. You are not having a heart attack. Recommend that you continue your medications as previously prescribed. Contact Dr. Shah's office Saturday to set up a follow-up. Return to ER for any new or worsening symptoms of concern. Sepsis Event Note (ED) - Evaluation Sepsis Screening Result: No Definite Risk - Focused Exam Vital Signs: Vital Signs Temp Pulse Resp BP Pulse Ox 08/18/20 18:22 98.1 F 64 14 145/71 H 98
--- NOTE | 2020-08-18 19:49 | CR ---
Chest: 2 views of the chest were obtained. Comparison: Prior chest x-ray 04/18/20. Mild atelectasis is seen within the lingula. Lungs otherwise are clear with no acute parenchymal change. Heart size is normal. Scoliosis is noted within the spine. Previous cholecystectomy is seen. Impression: 1. Slight atelectasis. 2. Other findings. Nothing acute is seen. Diagnostic code #2
== END 2020-08-18 19:34 | disposition home or self-care (01) ==
LOC: JD.ED 18:18
DX: R07.89 Other chest pain (principal); E78.00 Pure hypercholesterolemia, unspecified; I10 Essential (primary) hypertension; Z88.1 Allergy status to other antibiotic agents; Z79.01 Long term (current) use of anticoagulants; Z79.899 Other long term (current) drug therapy
CPT/HCPCS: 36415; 71046; 71046-26; 80053; 83735; 83880; 84484; 85025; 85379; 85610; 93005; 99285-25

== ENCOUNTER 2021-07-21 21:00 | Emergency (ER) | payer MEDICARE, OTHER ==
[2021-07-21 21:34] VITALS: BP 153/76; PULSE 64
--- NOTE | 2021-07-21 21:46 | EDM.PDOC ---
ED HPI GENERAL MEDICAL PROBLEM - General Chief Complaint: Cardiovascular Problem Stated Complaint: HIGH BP Time Seen by Provider: 07/21/21 21:36 - History of Present Illness INITIAL COMMENTS - FREE TEXT/NARRATIVE: 75-year-old female presents the emergency room with elevated blood pressure problems. Patient states blood pressures been a little higher than normal. She is got a headache. She states her blood pressure is usually in the 115 range but almost always below 120 systolic. And she gets symptomatic when it runs higher than this. Patient is on spironolactone and carvedilol. She is also on Eliquis for A. fib. Patient has not had any chest pain breathing difficulties or shortness of breath. For headache she has tried Tylenol the other day this did not seem to help. Patient has not had any nausea or vomiting or abdominal symptoms. Patient denies any other complaints at this time. Headache Pain Score (Numeric/FACES): 5 - Related Data Allergies Allergy/AdvReac Type Severity Reaction Status Date / Time amoxicillin Allergy Severe Hives Verified 07/21/21 21:34 metronidazole Allergy Severe Hives Verified 07/21/21 21:34 Home Meds: Home Meds Apixaban [Eliquis] 5 mg PO BID 04/18/20 [History] Calcium Carbonate [Calcium Antacid] 300 mg PO TID 04/18/20 [History] Glucosamine [Glucosamine Sulfate] 1,000 mg PO DAILY 04/18/20 [History] Pantoprazole [ProTONIX] 40 mg PO DAILY 04/18/20 [History] Pravastatin [Pravachol] 40 mg PO DAILY 04/18/20 [History] Spironolactone [Aldactone] 25 mg PO DAILY 04/18/20 [History] Ubidecarenone/Vitamin E [Co Q-10 50 MG Softgel] 124 mg PO DAILY 04/18/20 [History] carvediloL [Carvedilol] 3.125 mg PO BID 04/18/20 [History] Cholecalciferol (Vitamin D3) [Vitamin D3] 5,000 unit PO DAILY 08/18/20 [History] Zinc 50 mg PO DAILY 08/18/20 [History] Past Medical History HEENT History: Reports: Impaired Vision Other HEENT History: Wears glasses Cardiovascular History: Reports: Arrhythmia, High Cholesterol, Hypertension, Other (See Below) Other Cardiovascular History: SVT 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: Reports: Other (See Below) Other 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: Ovarian cyst Other Hematologic History: pseudocholinesterace deficency - Infectious Disease History Infectious Disease History: Reports: Chicken Pox, Measles - Past Surgical History GI Surgical History: Reports: Appendectomy, Cholecystectomy Female Surgical History: Reports: Hysterectomy, Tubal Ligation Social & Family History - Family History Cardiac: Reports: [place] Neurological: Reports: CVA Oncologic: Reports: Prostate - Caffeine Use Caffeine Use: Reports: None - Living Situation & Occupation Living situation: Reports: Occupation: Retired ED ROS GENERAL - Review of Systems Review Of Systems: See Below Constitutional: Reports: No Symptoms HEENT: Reports: No Symptoms Respiratory: Reports: No Symptoms Cardiovascular: Reports: Blood Pressure Problem. Denies: Chest Pain Endocrine: Reports: No Symptoms GI/Abdominal: Reports: No Symptoms : Reports: No Symptoms Musculoskeletal: Reports: No Symptoms Skin: Reports: No Symptoms Neurological: Reports: Headache Psychiatric: Reports: No Symptoms ED EXAM, GENERAL - Physical Exam Exam: See Below Exam Limited By: No Limitations General Appearance: Alert, No Apparent Distress Ears: Normal External Exam, Normal [place], Hearing Grossly Normal, Normal TMs Nose: Normal Inspection, Normal Mucosa, No Blood Throat/Mouth: Normal Inspection, Normal Lips, Normal Teeth (In good repair she has had lots of fillings over the years), Normal Gums, Normal Oropharynx, Normal Voice, No Airway Compromise Head: Atraumatic, Normocephalic Neck: Normal Inspection, Supple. No: Lymphadenopathy (L), Lymphadenopathy (R) Respiratory/Chest: No Respiratory Distress, Lungs Clear, Normal Breath Sounds Cardiovascular: Regular Rate, Rhythm, No Edema, No Rub GI/Abdominal: Normal Bowel Sounds, Soft, Non-Tender Extremities: Normal Inspection, No Pedal Edema Neurological: Alert, Oriented, Normal Cognition #1 Interpretation EKG Date: 07/21/21 Rhythm: NSR Rate (Beats/Min): 58 [place]: Normal P-Wave: Present QRS: Other (Anterior Q waves noted decreased electrical activity limb leads) ST-T: Other (ST depression leads to subtle this was seen on prior studies) QT: Normal Comparison: No Change (No significant change from 08/18/2020) EKG Interpretation Comments: Abnormal EKG Course - Vital Signs Last Recorded V/S: Last Vital Signs Temp 36.4 C 07/21/21 21:31 Pulse 64 11/26/21 21:31 Resp 20 07/21/21 21:31 BP 153/76 H 07/21/21 21:31 Pulse Ox 97 07/21/21 21:31 - Orders/Labs/Meds Orders: Active Orders 24 hr Category Date Time Status Chest 1V Frontal [CR] Stat Exams 07/21/21 21:53 Taken Head wo Cont [CT] Stat Exams 07/21/21 21:53 Taken Labs: Laboratory Tests 07/21/21 07/21/21 07/21/21 Range/Units 22:15 22:15 22:15 WBC 7.69 (3.98-10.04) K/mm3 RBC 4.48 (3.98-5.22) M/mm3 Hgb 13.5 (11.2-15.7) gm/dl Hct 41.5 (34.1-44.9) % MCV 92.6 (79.4-94.8) fl MCH 30.1 (25.6-32.2) pg MCHC 32.5 (32.2-35.5) g/dl RDW Std Deviation 45.1 (36.4-46.3) fL Plt Count 237 (182-369) K/mm3 MPV 10.3 (9.4-12.3) fl Neut % (Auto) 57.1 (34.0-71.1) % Lymph % (Auto) 28.6 (19.3-51.7) % [place] % (Auto) 12.0 (4.7-12.5) % Eos % (Auto) 1.8 (0.7-5.8) Baso % (Auto) 0.4 (0.1-1.2) % Neut # (Auto) 4.39 (1.56-6.13) K/mm3 Lymph # (Auto) 2.20 (1.18-3.74) K/mm3 [place] # (Auto) 0.92 H (0.24-0.36) K/mm3 Eos # (Auto) 0.14 (0.04-0.36) K/mm3 Baso # (Auto) 0.03 (0.01-0.08) K/mm3 PT 10.9 (9.7-12.0) SECONDS INR 0.98 APTT 26.5 (21.7-31.4) SECONDS Sodium 140 (136-145) mEq/L Potassium 3.9 (3.5-5.1) mEq/L Chloride 105 (98-107) mEq/L Carbon Dioxide 26 (21-32) mEq/L Anion Gap 12.9 (5-15) BUN 15 (7-18) mg/dL Creatinine 1.0 (0.55-1.02) mg/dL Est Cr Clr Drug Dosing 38.97 mL/min Estimated GFR (MDRD) 54 (>60) mL/min BUN/Creatinine Ratio 15.0 (14-18) Glucose 98 (70-99) mg/dL Calcium 9.3 (8.5-10.1) mg/dL Total Bilirubin 0.3 (0.2-1.0) mg/dL AST 19 (15-37) U/L ALT 29 (14-59) U/L Alkaline Phosphatase 55 (46-116) U/L Troponin I < 0.017 (0.00-0.056) ng/mL NT-Pro-B Natriuret Pep (0-450) pg/mL Total Protein 7.1 (6.4-8.2) g/dl Albumin 4.0 (3.4-5.0) g/dl Globulin 3.1 gm/dL Albumin/Globulin Ratio 1.3 (1-2) 07/21/21 Range/Units 22:15 WBC (3.98-10.04) K/mm3 RBC (3.98-5.22) M/mm3 Hgb (11.2-15.7) gm/dl Hct (34.1-44.9) % MCV (79.4-94.8) fl MCH (25.6-32.2) pg MCHC (32.2-35.5) g/dl RDW Std Deviation (36.4-46.3) fL Plt Count (182-369) K/mm3 MPV (9.4-12.3) fl Neut % (Auto) (34.0-71.1) % Lymph % (Auto) (19.3-51.7) % [place] % (Auto) (4.7-12.5) % Eos % (Auto) (0.7-5.8) Baso % (Auto) (0.1-1.2) % Neut # (Auto) (1.56-6.13) K/mm3 Lymph # (Auto) (1.18-3.74) K/mm3 [place] # (Auto) (0.24-0.36) K/mm3 Eos # (Auto) (0.04-0.36) K/mm3 Baso # (Auto) (0.01-0.08) K/mm3 PT (9.7-12.0) SECONDS INR APTT (21.7-31.4) SECONDS Sodium (136-145) mEq/L Potassium (3.5-5.1) mEq/L Chloride (98-107) mEq/L Carbon Dioxide (21-32) mEq/L Anion Gap (5-15) BUN (7-18) mg/dL Creatinine (0.55-1.02) mg/dL Est Cr Clr Drug Dosing mL/min Estimated GFR (MDRD) (>60) mL/min BUN/Creatinine Ratio (14-18) Glucose (70-99) mg/dL Calcium (8.5-10.1) mg/dL Total Bilirubin (0.2-1.0) mg/dL AST (15-37) U/L ALT (14-59) U/L Alkaline Phosphatase (46-116) U/L Troponin I (0.00-0.056) ng/mL NT-Pro-B Natriuret Pep 110 (0-450) pg/mL Total Protein (6.4-8.2) g/dl Albumin (3.4-5.0) g/dl Globulin gm/dL Albumin/Globulin Ratio (1-2) Meds: Medications Discontinued Medications Generic Name Dose Route Start Last Admin Trade Name John PRN Reason Stop Dose Admin Acetaminophen 975 mg 07/21/21 23:11 07/21/21 23:35 Acetaminophen 325 Mg Tab PO 07/21/21 23:12 975 mg NOW ONE Administration - Re-Assessments/Exams Free Text/Narrative Re-Assessment/Exam: 07/21/21 23:11 With her modest blood pressure of having a hard time accepting this is causing her headache will go ahead and check a CT blood lab work and see what else we can come up with. 07/21/21 23:44 She is work-up is essentially unremarkable head CT is negative chest CT does not show any acute changes EKG shows no acute changes. Laboratory evaluation is unremarkable. I have reexamined the patient looking for causes for headache can come up with any neck tenderness or anything like that he had a long discussion with the patient and she thinks at this point she is just probably overtired and she would like to go home and get some sleep. We will discharge her home. Departure - Departure Time of Disposition: 23:44 Disposition: Home, Self-Care 01 Clinical Impression: Headache Referrals: Manuela Mchugh MD [Primary Care Provider] - Forms: ED Department Discharge Additional Instructions: Return to the emergency room with any questions problems or worsening symptoms. Follow-up with your regular healthcare provider in 1 week if needed. Follow-up with cardiology as scheduled. Tylenol as needed for your headaches. Sepsis Event Note (ED) - Focused Exam Vital Signs: Vital Signs Temp Pulse Resp BP Pulse Ox 07/21/21 21:31 36.4 C 64 20 153/76 H 97 - My Orders Last 24 Hours: My Active Orders 07/21/21 21:53 Chest 1V Frontal [CR] Stat Head wo Cont [CT] Stat - Assessment/Plan Last 24 Hours: My Active Orders 07/21/21 21:53 Chest 1V Frontal [CR] Stat Head wo Cont [CT] Stat
[2021-07-21] MEDS ORDERED: Acetaminophen 325 MG Tab PO ONE (23:11)
--- NOTE | 2021-07-22 07:33 | CT ---
Head CT Technique: Multiple axial sections through the brain were obtained. Intravenous contrast was not utilized. Reconstructed coronal and sagittal images were obtained. Comparison: Prior head CT study of 08/16/10. Findings: Ventricles along with basal cisterns and sulci over the convexities are within normal limits for the patient's age. No abnormal parenchymal densities are seen within the brain. No midline shift or mass-effect is seen. No evidence of intracranial hemorrhage. Bone window settings were reviewed. Visualized mastoid sinuses and paranasal sinuses show nothing acute. Minimal atherosclerotic change is seen within the carotid siphon. No acute calvarial abnormality is appreciated. Impression: 1. Minimal senescent change as noted above. 2. Nothing acute is seen on noncontrast head CT exam. 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
--- NOTE | 2021-07-22 07:37 | CR ---
Chest: Portable view of the chest was obtained. Comparison: Prior chest x-ray of 08/18/20. Heart size is within normal limits for portable technique. Mild atherosclerotic calcific change is seen within the aortic arch. Thoracic aorta is slightly tortuous. Slight scarring is noted within the left lung base. Scattered degenerative disc space narrowing within the thoracic spine are seen as well as mild scattered endplate osteophytes. Osteopenia is also noted. Impression: 1. Chronic findings as described above. 2. Nothing acute is seen on portable chest x-ray. Diagnostic code #2
== END 2021-07-21 23:52 | disposition home or self-care (01) ==
LOC: JD.ED 21:00
DX: R51.9 Headache, unspecified (principal); E78.00 Pure hypercholesterolemia, unspecified; I10 Essential (primary) hypertension; R94.31 Abnormal electrocardiogram [ECG] [EKG]; Z88.0 Allergy status to penicillin; Z88.1 Allergy status to other antibiotic agents; Z79.01 Long term (current) use of anticoagulants; Z79.899 Other long term (current) drug therapy
CPT/HCPCS: 36415; 70450; 71045; 80053; 83880; 84484; 85025; 85610; 85730; 93005; 99284; A9270

== ENCOUNTER 2022-12-24 02:41 | Emergency (ER) | payer MEDICARE, OTHER ==
[2022-12-24 02:51] VITALS: BP 151/113; PULSE 156
[2022-12-24] MEDS ORDERED: Diltiazem 25 MG/5 ML SDV IVPUSH ONE (02:51)
[2022-12-24] MEDS ORDERED: Ondansetron 4 MG/2 ML SDV IVPUSH ONE (03:00)
[2022-12-24] MEDS ORDERED: Diltiazem 125 MG in Sodium Chloride 0.9% 100 ML IV SCH (04:00)
== END 2022-12-24 07:22 | disposition home or self-care (01) ==
LOC: JD.ED 02:41
DX: I48.91 Unspecified atrial fibrillation (principal); E78.00 Pure hypercholesterolemia, unspecified; I10 Essential (primary) hypertension; Z88.0 Allergy status to penicillin; Z88.8 Allergy status to other drugs, medicaments and biological substances; Z79.01 Long term (current) use of anticoagulants; Z79.899 Other long term (current) drug therapy
CPT/HCPCS: 36415; 80053; 83735; 84484; 85025; 85610; 85730; 93005; 96365; 96366; 96376; 99285; J3490; 93010; 99284

== ENCOUNTER 2023-05-18 22:58 | Emergency (ER) | payer MEDICARE, OTHER ==
[2023-05-18 23:33] LABS: BASOPHILS ABSOLUTE AUTO 0.1 K/mm3 (0.0-0.2); BASOPHILS PERCENT AUTO 0.8 % (0.0-1.0); EOSINOPHILS ABSOLUTE AUTO 0.2 K/mm3 (0.0-0.4); EOSINOPHILS PERCENT AUTO 2.5 % (0.0-6.0); HEMOGLOBIN 13.1 gm/dl (12.0-16.0); IMMATURE GRAN ABSOLUTE AUTO 0.02 K/mm3 (0.00-0.05); IMMATURE GRAN PERCENT AUTO 0.3 % (0.0-0.4); LYMPHOCYTES ABSOLUTE AUTO 2.3 K/mm3 (1.0-4.8); LYMPHOCYTES PERCENT AUTO 36.8 % (24.0-44.0); MEAN CORPUSCULAR HEMOGLOBIN 30.8 pg (28.0-32.0); MEAN CORPUSCULAR HGB CONC 33.6 g/dl (32.0-36.0); MEAN CORPUSCULAR VOLUME 91.8 fl (83.0-99.0); MEAN PLATELET VOLUME 9.7 fl (9.4-12.3); MONOCYTES ABSOLUTE AUTO 0.6 K/mm3 (0.0-0.8); MONOCYTES PERCENT AUTO 8.7 % (0.0-8.0); NEUTROPHILS ABSOLUTE AUTO 3.2 K/mm3 (1.8-7.7); NEUTROPHILS PERCENT AUTO 50.9 % (41.0-71.0); PLATELET COUNT,PLT 210 K/mm3 (150-400); RED BLOOD CELL COUNT 4.25 M/mm3 (4.10-5.30)
[2023-05-18 23:52] LABS: INR 1.23
[2023-05-18 23:57] LABS: A/G RATIO 1.2 (1-2); ALBUMIN 3.7 g/dl (3.4-5.0); ANION GAP 10.9 (5-15); BILIRUBIN TOTAL 0.4 mg/dL (0.2-1.0); BUN/CREATININE RATIO 12.7 (14-18); CALCIUM 9.2 mg/dL (8.5-10.1); CREATININE 1.1 mg/dL (0.55-1.02); EST CRCL DRUG DOSING (CG) 32.8 mL/min; POTASSIUM,K 3.9 mEq/L (3.5-5.1); PROTEIN TOTAL,TP 6.9 g/dl (6.4-8.2)
[2023-05-19 04:20] VITALS: BP 111/58; PULSE 54
== END 2023-05-19 01:00 | disposition home or self-care (01) ==
LOC: JD.ED 22:58
DX: R07.9 Chest pain, unspecified (principal); I48.91 Unspecified atrial fibrillation; K21.9 Gastro-esophageal reflux disease without esophagitis; E78.00 Pure hypercholesterolemia, unspecified; I10 Essential (primary) hypertension; Z79.01 Long term (current) use of anticoagulants; Z79.899 Other long term (current) drug therapy; Z88.1 Allergy status to other antibiotic agents; Z88.8 Allergy status to other drugs, medicaments and biological substances
CPT/HCPCS: 36415; 71045; 71045-26; 80053; 84484; 85025; 85610; 93005; 93010; 99282; 99285

== ENCOUNTER 2023-05-29 18:59 | Emergency (ER) | payer MEDICARE, OTHER ==
[2023-05-29] MEDS ORDERED: Sodium Chloride 0.9% 10 ML Syringe FLUSH PRN (19:00)
[2023-05-29] MEDS ORDERED: Aspirin 81 MG Tab.Chew PO ONE (19:00)
[2023-05-29 19:22] LABS: BASOPHILS PERCENT AUTO 0.5 % (0.0-1.0); EOSINOPHILS ABSOLUTE AUTO 0.1 K/mm3 (0.0-0.4); EOSINOPHILS PERCENT AUTO 1.5 % (0.0-6.0); HEMATOCRIT 40.5 % (37.0-47.0); HEMOGLOBIN 13.8 gm/dl (12.0-16.0); IMMATURE GRAN ABSOLUTE AUTO 0.02 K/mm3 (0.00-0.05); IMMATURE GRAN PERCENT AUTO 0.3 % (0.0-0.4); LYMPHOCYTES ABSOLUTE AUTO 2.2 K/mm3 (1.0-4.8); LYMPHOCYTES PERCENT AUTO 27.6 % (24.0-44.0); MEAN CORPUSCULAR HEMOGLOBIN 31.1 pg (28.0-32.0); MEAN CORPUSCULAR HGB CONC 34.1 g/dl (32.0-36.0); MEAN CORPUSCULAR VOLUME 91.2 fl (83.0-99.0); MONOCYTES ABSOLUTE AUTO 0.8 K/mm3 (0.0-0.8); MONOCYTES PERCENT AUTO 10.5 % (0.0-8.0); NEUTROPHILS ABSOLUTE AUTO 4.7 K/mm3 (1.8-7.7); NEUTROPHILS PERCENT AUTO 59.6 % (41.0-71.0); PLATELET COUNT,PLT 229 K/mm3 (150-400); RED BLOOD CELL COUNT 4.44 M/mm3 (4.10-5.30)
[2023-05-29 19:40] LABS: INR 1.01; PROTHROMBIN TIME 10.8 SECONDS (9.7-12.0)
[2023-05-29 19:44] LABS: D-DIMER QUANTITATIVE < 0.19 mg/L (0.19-0.50)
[2023-05-29 19:45] LABS: A/G RATIO 1.2 (1-2); ALBUMIN 3.9 g/dl (3.4-5.0); ANION GAP 13.1 (5-15); BILIRUBIN TOTAL 0.5 mg/dL (0.2-1.0); BUN/CREATININE RATIO 18.3 (14-18); CALCIUM 9.7 mg/dL (8.5-10.1); CREATININE 1.2 mg/dL (0.55-1.02); EST CRCL DRUG DOSING (CG) 30.07 mL/min; POTASSIUM,K 4.1 mEq/L (3.5-5.1); PROTEIN TOTAL,TP 7.2 g/dl (6.4-8.2)
[2023-05-29 21:50] VITALS: PULSE 60
[2023-05-29] MEDS ORDERED: Heparin Sodium 5,000 Units/ML Vial IVPUSH ONE (22:14)
[2023-05-29] MEDS ORDERED: Heparin Sodium/D5W 25,000 UNITS/500 ML BAG IV SCH (22:15)
[2023-05-29 22:53] VITALS: BP 149/71
[2023-05-29] MEDS ORDERED: fentaNYL 100 MCG/2 ML SDV IVPUSH ONE (23:07)
[2023-05-29] MEDS ORDERED: Naloxone 0.4 MG/ML SDV IVPUSH PRN (23:07)
== END 2023-05-29 23:17 ==
LOC: JD.ED 18:59
DX: I21.4 Non-ST elevation (NSTEMI) myocardial infarction (principal); E78.00 Pure hypercholesterolemia, unspecified; K21.9 Gastro-esophageal reflux disease without esophagitis; I48.91 Unspecified atrial fibrillation; I10 Essential (primary) hypertension; Z88.0 Allergy status to penicillin; Z88.8 Allergy status to other drugs, medicaments and biological substances; Z88.1 Allergy status to other antibiotic agents; Z79.899 Other long term (current) drug therapy; Z90.49 Acquired absence of other specified parts of digestive tract; Z90.710 Acquired absence of both cervix and uterus
CPT/HCPCS: 36415; 71045; 80053; 83735; 84484; 85025; 85379; 85610; 93005; 96365; 96376; 99285; A9270; J1644; J3490; 93010

== ENCOUNTER 2023-07-12 02:05 | Emergency (ER) | payer MEDICARE, OTHER ==
[2023-07-12] MEDS ORDERED: Diltiazem 25 MG/5 ML SDV IVPUSH ONE (02:40)
[2023-07-12 02:47] LABS: BASOPHILS PERCENT AUTO 0.6 % (0.0-1.0); EOSINOPHILS ABSOLUTE AUTO 0.2 K/mm3 (0.0-0.4); EOSINOPHILS PERCENT AUTO 2.7 % (0.0-6.0); HEMATOCRIT 41.2 % (37.0-47.0); HEMOGLOBIN 13.9 gm/dl (12.0-16.0); IMMATURE GRAN ABSOLUTE AUTO 0.01 K/mm3 (0.00-0.05); IMMATURE GRAN PERCENT AUTO 0.1 % (0.0-0.4); LYMPHOCYTES ABSOLUTE AUTO 2.4 K/mm3 (1.0-4.8); LYMPHOCYTES PERCENT AUTO 33.3 % (24.0-44.0); MEAN CORPUSCULAR HEMOGLOBIN 30.8 pg (28.0-32.0); MEAN CORPUSCULAR HGB CONC 33.7 g/dl (32.0-36.0); MEAN CORPUSCULAR VOLUME 91.4 fl (83.0-99.0); MEAN PLATELET VOLUME 10.3 fl (9.4-12.3); MONOCYTES ABSOLUTE AUTO 0.7 K/mm3 (0.0-0.8); MONOCYTES PERCENT AUTO 9.2 % (0.0-8.0); NEUTROPHILS ABSOLUTE AUTO 3.8 K/mm3 (1.8-7.7); NEUTROPHILS PERCENT AUTO 54.1 % (41.0-71.0); PLATELET COUNT,PLT 265 K/mm3 (150-400); RED BLOOD CELL COUNT 4.51 M/mm3 (4.10-5.30); WHITE BLOOD CELL COUNT,WBC 7.05 K/mm3 (3.9-11.3)
[2023-07-12 03:04] LABS: A/G RATIO 1.2 (1-2); ALBUMIN 3.8 g/dl (3.4-5.0); ANION GAP 15.7 (5-15); BILIRUBIN TOTAL 0.5 mg/dL (0.2-1.0); BUN/CREATININE RATIO 16.4 (14-18); CALCIUM 9.1 mg/dL (8.5-10.1); CREATININE 1.1 mg/dL (0.55-1.02); EST CRCL DRUG DOSING (CG) 32.8 mL/min; POTASSIUM,K 3.7 mEq/L (3.5-5.1); PROTEIN TOTAL,TP 7.1 g/dl (6.4-8.2)
[2023-07-12 05:47] VITALS: BP 121/62; PULSE 54
== END 2023-07-12 05:18 | disposition home or self-care (01) ==
LOC: JD.ED 02:05
DX: I48.91 Unspecified atrial fibrillation (principal); E78.00 Pure hypercholesterolemia, unspecified; I10 Essential (primary) hypertension; J44.9 Chronic obstructive pulmonary disease, unspecified; K21.9 Gastro-esophageal reflux disease without esophagitis; Z88.1 Allergy status to other antibiotic agents; Z88.8 Allergy status to other drugs, medicaments and biological substances; Z88.0 Allergy status to penicillin; Z90.49 Acquired absence of other specified parts of digestive tract; Z79.899 Other long term (current) drug therapy
CPT/HCPCS: 36415; 80053; 83735; 84484; 85025; 93005; 96374; 99285; J3490; 93010; 99284

== ENCOUNTER 2023-08-30 05:19 | Emergency (ER) | payer MEDICARE, OTHER ==
[2023-08-30 05:38] VITALS: PULSE 121
[2023-08-30] MEDS ORDERED: Diltiazem 25 MG/5 ML SDV IVPUSH ONE (05:50)
[2023-08-30] MEDS ORDERED: Sodium Chloride 0.9% 1,000 ML IV SCH (06:00)
[2023-08-30] MEDS ORDERED: Diltiazem 125 MG in Sodium Chloride 0.9% 100 ML IV SCH (06:00)
[2023-08-30 06:39] LABS: BASOPHILS ABSOLUTE AUTO 0.1 K/mm3 (0.0-0.2); BASOPHILS PERCENT AUTO 0.7 % (0.0-1.0); EOSINOPHILS ABSOLUTE AUTO 0.2 K/mm3 (0.0-0.4); HEMATOCRIT 41.3 % (37.0-47.0); HEMOGLOBIN 13.9 gm/dl (12.0-16.0); IMMATURE GRAN ABSOLUTE AUTO 0.02 K/mm3 (0.00-0.05); IMMATURE GRAN PERCENT AUTO 0.3 % (0.0-0.4); LYMPHOCYTES ABSOLUTE AUTO 2.7 K/mm3 (1.0-4.8); LYMPHOCYTES PERCENT AUTO 34.8 % (24.0-44.0); MEAN CORPUSCULAR HEMOGLOBIN 30.3 pg (28.0-32.0); MEAN CORPUSCULAR HGB CONC 33.7 g/dl (32.0-36.0); MEAN CORPUSCULAR VOLUME 90.2 fl (83.0-99.0); MEAN PLATELET VOLUME 10.9 fl (9.4-12.3); MONOCYTES ABSOLUTE AUTO 0.7 K/mm3 (0.0-0.8); MONOCYTES PERCENT AUTO 9.4 % (0.0-8.0); NEUTROPHILS ABSOLUTE AUTO 4.1 K/mm3 (1.8-7.7); NEUTROPHILS PERCENT AUTO 52.8 % (41.0-71.0); PLATELET COUNT,PLT 272 K/mm3 (150-400); RED BLOOD CELL COUNT 4.58 M/mm3 (4.10-5.30); WHITE BLOOD CELL COUNT,WBC 7.65 K/mm3 (3.9-11.3)
[2023-08-30 06:53] LABS: INR 1.17; PROTHROMBIN TIME 12.4 SECONDS (9.7-12.0)
[2023-08-30 06:59] LABS: A/G RATIO 1.1 (1-2); ALANINE AMINOTRANSFERASE,ALT 22 U/L (14-59); ALBUMIN 3.8 g/dl (3.4-5.0); ALKALINE PHOSPHATASE 53 U/L (46-116); ANION GAP 13.7 (5-15); ASPARTATE AMNIOTRANSFERASE,AST 20 U/L (15-37); BILIRUBIN TOTAL 0.4 mg/dL (0.2-1.0); BLOOD UREA NITROGEN,BUN 20 mg/dL (7-18); C-REACTIVE PROTEIN <0.2 mg/dL (<1.0); CARBON DIOXIDE,CO2 25 mEq/L (21-32); CHLORIDE,CL 105 mEq/L (98-107); ESTIMATED GFR 57 mL/min (>60); GLUCOSE RANDOM 107 mg/dL (70-99); MAGNESIUM 1.9 mg/dL (1.8-2.4); POTASSIUM,K 3.7 mEq/L (3.5-5.1); PROTEIN TOTAL,TP 7.2 g/dl (6.4-8.2); SODIUM,NA 140 mEq/L (136-145); TROPONIN I HIGH SENSITIVITY 6 pg/mL (<=51); TSH 2.038 uIU/mL (0.358-3.74)
[2023-08-30 08:01] VITALS: BP 117/61
== END 2023-08-30 07:50 | disposition home or self-care (01) ==
LOC: JD.ED 05:19
DX: I48.0 Paroxysmal atrial fibrillation (principal); I20.89 Other forms of angina pectoris; I10 Essential (primary) hypertension; E78.00 Pure hypercholesterolemia, unspecified; J44.9 Chronic obstructive pulmonary disease, unspecified; K21.9 Gastro-esophageal reflux disease without esophagitis; Z86.16 Personal history of COVID-19; Z90.49 Acquired absence of other specified parts of digestive tract; Z90.710 Acquired absence of both cervix and uterus; Z79.899 Other long term (current) drug therapy; Z88.0 Allergy status to penicillin; Z88.8 Allergy status to other drugs, medicaments and biological substances
CPT/HCPCS: 36415; 71045; 80053; 83735; 83880; 84443; 84484; 85025; 85610; 85730; 86140; 93005; 96365; 99285; J3490; J7030

== ENCOUNTER 2023-10-10 22:47 | Emergency (ER) | payer MEDICARE, OTHER ==
[2023-10-10] MEDS ORDERED: Sodium Chloride 0.9% 10 ML Syringe FLUSH PRN (23:00)
[2023-10-10 23:10] LABS: BASOPHILS PERCENT AUTO 0.4 % (0.0-1.0); EOSINOPHILS ABSOLUTE AUTO 0.2 K/mm3 (0.0-0.4); EOSINOPHILS PERCENT AUTO 2.2 % (0.0-6.0); HEMATOCRIT 40.3 % (37.0-47.0); HEMOGLOBIN 13.7 gm/dl (12.0-16.0); IMMATURE GRAN ABSOLUTE AUTO 0.02 K/mm3 (0.00-0.05); IMMATURE GRAN PERCENT AUTO 0.3 % (0.0-0.4); LYMPHOCYTES ABSOLUTE AUTO 2.6 K/mm3 (1.0-4.8); LYMPHOCYTES PERCENT AUTO 35.6 % (24.0-44.0); MEAN CORPUSCULAR HEMOGLOBIN 30.5 pg (28.0-32.0); MEAN CORPUSCULAR VOLUME 89.8 fl (83.0-99.0); MEAN PLATELET VOLUME 10.2 fl (9.4-12.3); MONOCYTES ABSOLUTE AUTO 0.9 K/mm3 (0.0-0.8); MONOCYTES PERCENT AUTO 11.6 % (0.0-8.0); NEUTROPHILS ABSOLUTE AUTO 3.6 K/mm3 (1.8-7.7); NEUTROPHILS PERCENT AUTO 49.9 % (41.0-71.0); PLATELET COUNT,PLT 236 K/mm3 (150-400); RED BLOOD CELL COUNT 4.49 M/mm3 (4.10-5.30)
[2023-10-10] MEDS: Aspirin 81 MG Tab.Chew PO ONE (23:15)
[2023-10-10 23:49] LABS: A/G RATIO 1.1 (1-2); ALANINE AMINOTRANSFERASE,ALT 21 U/L (14-59); ALBUMIN 3.8 g/dl (3.4-5.0); ALKALINE PHOSPHATASE 63 U/L (46-116); ANION GAP 14.7 (5-15); ASPARTATE AMNIOTRANSFERASE,AST 16 U/L (15-37); BILIRUBIN TOTAL 0.4 mg/dL (0.2-1.0); BLOOD UREA NITROGEN,BUN 21 mg/dL (7-18); BUN/CREATININE RATIO 17.5 (14-18); CALCIUM 8.9 mg/dL (8.5-10.1); CARBON DIOXIDE,CO2 24 mEq/L (21-32); CHLORIDE,CL 105 mEq/L (98-107); CREATININE 1.2 mg/dL (0.55-1.02); ESTIMATED GFR 46 mL/min (>60); GLUCOSE RANDOM 115 mg/dL (70-99); INR 1.45; POTASSIUM,K 3.7 mEq/L (3.5-5.1); PROTEIN TOTAL,TP 7.3 g/dl (6.4-8.2); PROTHROMBIN TIME 15.1 SECONDS (9.7-12.0); SODIUM,NA 140 mEq/L (136-145); TROPONIN I HIGH SENSITIVITY 6 pg/mL (<=51)
[2023-10-10 23:59] LABS: D-DIMER QUANTITATIVE < 0.19 mg/L (0.19-0.50)
[2023-10-11] MEDS: Diltiazem 180 MG Cap.CD PO ONE (00:01)
[2023-10-11 01:08] VITALS: BP 101/89; PULSE 110
== END 2023-10-11 01:09 | disposition home or self-care (01) ==
LOC: JD.ED 22:47
DX: R07.89 Other chest pain (principal); I48.91 Unspecified atrial fibrillation; I10 Essential (primary) hypertension; E78.00 Pure hypercholesterolemia, unspecified; J44.9 Chronic obstructive pulmonary disease, unspecified; K21.9 Gastro-esophageal reflux disease without esophagitis; Z86.16 Personal history of COVID-19; Z90.49 Acquired absence of other specified parts of digestive tract; Z90.710 Acquired absence of both cervix and uterus; Z79.899 Other long term (current) drug therapy; Z88.0 Allergy status to penicillin; Z88.8 Allergy status to other drugs, medicaments and biological substances
CPT/HCPCS: 36415; 71045; 80053; 83735; 83880; 84484; 85025; 85379; 85610; 93005; 99285; A9270

== ENCOUNTER 2024-07-29 09:17 | Day surgery (SDC) | payer MEDICARE, OTHER ==
[~2024-07-29 09:17] MED LIST: HYDROmorphone 0.5 MG/0.5 ML Syringe IVPUSH PRN; Lactated Ringers 1,000 ML IV SCH; Ondansetron 4 MG/2 ML SDV IVPUSH PRN; Sodium Chloride 0.9% 10 ML Syringe FLUSH PRN; Sodium Chloride 0.9% 10 ML Syringe FLUSH SCH; fentaNYL 100 MCG/2 ML SDV IVPUSH PRN
[2024-07-29] MEDS: Lactated Ringers 1,000 ML IV SCH (09:40)
[2024-07-29] MEDS ORDERED: Propofol 200 MG/20 ML SDV ONE (10:09)
[2024-07-29 12:22] VITALS: BP 112/58; PULSE 63
== END 2024-07-29 12:16 | disposition home or self-care (01) ==
LOC: JD.SDS 09:17
PROVIDERS: ATTEND Surgery
DX: D12.2 Benign neoplasm of ascending colon (principal); K29.50 Unspecified chronic gastritis without bleeding; K21.00 Gastro-esophageal reflux disease with esophagitis, without bleeding; K63.89 Other specified diseases of intestine; R19.4 Change in bowel habit; K44.9 Diaphragmatic hernia without obstruction or gangrene; K64.8 Other hemorrhoids; K90.41 Non-celiac gluten sensitivity; K22.70 Barrett's esophagus without dysplasia; K57.30 Diverticulosis of large intestine without perforation or abscess without bleeding; I10 Essential (primary) hypertension; E78.2 Mixed hyperlipidemia; I48.0 Paroxysmal atrial fibrillation; Z88.1 Allergy status to other antibiotic agents; Z88.8 Allergy status to other drugs, medicaments and biological substances; Z79.899 Other long term (current) drug therapy
CPT/HCPCS: 43239; 45380; J2704; J7120; 00813; 99100

== ENCOUNTER 2024-09-06 09:36 | Emergency (ER) | payer MEDICARE, OTHER ==
[2024-09-06 10:50] LABS: BASOPHILS PERCENT AUTO 0.5 % (0.0-1.0); EOSINOPHILS ABSOLUTE AUTO 0.1 K/mm3 (0.0-0.4); HEMATOCRIT 41.5 % (37.0-47.0); HEMOGLOBIN 13.7 gm/dl (12.0-16.0); IMMATURE GRAN ABSOLUTE AUTO 0.01 K/mm3 (0.00-0.05); IMMATURE GRAN PERCENT AUTO 0.2 % (0.0-0.4); LYMPHOCYTES ABSOLUTE AUTO 1.7 K/mm3 (1.0-4.8); LYMPHOCYTES PERCENT AUTO 30.1 % (24.0-44.0); MEAN CORPUSCULAR HEMOGLOBIN 29.5 pg (28.0-32.0); MEAN CORPUSCULAR VOLUME 89.4 fl (83.0-99.0); MONOCYTES ABSOLUTE AUTO 0.6 K/mm3 (0.0-0.8); MONOCYTES PERCENT AUTO 10.1 % (0.0-8.0); NEUTROPHILS ABSOLUTE AUTO 3.2 K/mm3 (1.8-7.7); NEUTROPHILS PERCENT AUTO 57.1 % (41.0-71.0); PLATELET COUNT,PLT 250 K/mm3 (150-400); RED BLOOD CELL COUNT 4.64 M/mm3 (4.10-5.30); WHITE BLOOD CELL COUNT,WBC 5.62 K/mm3 (3.9-11.3)
[2024-09-06 11:26] LABS: A/G RATIO 1.2 (1-2); ANION GAP 16.2 (5-15); BILIRUBIN TOTAL 0.7 mg/dL (0.2-1.0); CALCIUM 9.4 mg/dL (8.5-10.1); EST CRCL DRUG DOSING (CG) 33.29 mL/min; MAGNESIUM 2.2 mg/dL (1.8-2.4); POTASSIUM,K 4.2 mEq/L (3.5-5.1); PROTEIN TOTAL,TP 7.3 g/dl (6.4-8.2)
[2024-09-06 13:38] VITALS: BP 103/73; PULSE 72
== END 2024-09-06 13:08 | disposition home or self-care (01) ==
LOC: JD.ED 09:36
DX: R00.2 Palpitations (principal); I48.91 Unspecified atrial fibrillation; I10 Essential (primary) hypertension; E78.00 Pure hypercholesterolemia, unspecified; J44.9 Chronic obstructive pulmonary disease, unspecified; K21.9 Gastro-esophageal reflux disease without esophagitis; Z86.16 Personal history of COVID-19; Z90.49 Acquired absence of other specified parts of digestive tract; Z90.710 Acquired absence of both cervix and uterus; Z88.0 Allergy status to penicillin; Z88.8 Allergy status to other drugs, medicaments and biological substances; Z79.01 Long term (current) use of anticoagulants; Z79.899 Other long term (current) drug therapy
CPT/HCPCS: 36415; 80053; 83735; 83880; 84484; 85025; 85379; 93005; 93010; 99284; 99285